=== PATIENT | female | born 1980 | race Asian ===

== ENCOUNTER 2018-02-13 00:54 | Emergency (ER) | payer OTHER ==
[~2018-02-13] VITALS: Ht 149.9 cm; Wt 45.4 kg
[2018-02-13 00:57] VITALS: BP 118/72
[2018-02-13] MEDS ORDERED: IBUPROFEN 400 MG TABLET PO ONE (01:30)
== END 2018-02-13 01:37 | disposition home or self-care (01) ==
LOC: ER 01:03
DX: S80.02XA Contusion of left knee, initial encounter (principal); W22.8XXA Striking against or struck by other objects, initial encounter; Y93.89 Activity, other specified; Y92.89 Other specified places as the place of occurrence of the external cause; Y99.8 Other external cause status
CPT/HCPCS: A4606; Z7502; Z7610

== ENCOUNTER 2018-02-17 10:45 | Emergency (ER) | payer OTHER ==
[~2018-02-17] VITALS: Ht 149.9 cm; Wt 44.0 kg
[2018-02-17 10:52] VITALS: BP 136/92
== END 2018-02-17 11:55 | disposition home or self-care (01) ==
LOC: ER 10:46
DX: S70.12XA Contusion of left thigh, initial encounter (principal); M25.562 Pain in left knee; Z98.890 Other specified postprocedural states; X58.XXXA Exposure to other specified factors, initial encounter; Y93.89 Activity, other specified; Y92.89 Other specified places as the place of occurrence of the external cause; Y99.8 Other external cause status
CPT/HCPCS: 73562; Z7610

== ENCOUNTER 2018-02-24 15:28 | Outpatient (CLI) | payer OTHER ==
[2018-02-24 15:36] VITALS: BP 134/94
== END 2018-02-24 23:59 | disposition home or self-care (01) ==
LOC: MSC 15:28
PROVIDERS: ATTEND Internal Medicine
DX: S80.02XD Contusion of left knee, subsequent encounter (principal); S70.12XD Contusion of left thigh, subsequent encounter; W22.8XXD Striking against or struck by other objects, subsequent encounter; Y92.238 Other place in hospital as the place of occurrence of the external cause